=== PATIENT | female | born 1940 | race Caucasian/White ===

== ENCOUNTER 2017-03-02 09:44 | Outpatient (CLI) | payer MEDICARE, BC ==
--- NOTE | 2017-03-02 10:17 | MMO ---
BILATERAL MAMMOGRAMS: HISTORY: Screening mammography. COMPARISON: 01/07/2013 and 02/09/2016. FINDINGS: Scattered fibroglandular densities and benign-appearing calcifications are again demonstrated. Ther e is no dominant mass or suspicious calcifications. The study was evaluated with the assistance of computer-aided detection. IMPRESSION: BI-RADS category 1. Negative. Suggest routine followup. POS: JT
--- NOTE | 2017-03-02 12:46 | BD ---
DEXA BONE MINERAL DENSITOMETRY STUDY: Date: 03/02/17 HISTORY: Postmenopausal. COMPARISON: 08/29/11. FINDINGS: Lumbar Spine: BMD (g/cm2) L1 0.861 T-Score: -1.2 Z-Score: 0.9 L2 0.852 T-Score: -1.6 Z-Score: 0.7 L3 0.888 T-Score: -1.8 Z-Score: 0.7 L4 0.852 T-Score: -1.9 Z-Score: 0.6 L1-L4 0.863 T-Score: -1.7 Z-Score: 0.7 Femoral Neck: 0.641 T-Score: -1.9 Z-Score: 0.2 Total Femur: 0.828 T-Score: -0.9 Z-Score: 0.8 Bone mineral density of the lumbar spine on the study in 2011 from L1-L4 was 0.803, corresponding to a young adult T-score of -2.2. The bone mineral density of the left femoral neck on the prior study was 0.65, corresponding to a young adult T-score of -1.8. IMPRESSION: 1. Mild osteopenia of the lumbar spine and left femoral neck. 2. Since the prior exam, there has been an 8.3% decrease in bone mineral density of the left femora l neck with interval increase in bone mineral density of the lumbar spine by 7.5%. POS: JT
== END 2017-03-02 09:45 | disposition home or self-care (01) ==
LOC: MAMMO 09:44
PROVIDERS: ATTEND Internal Medicine
DX: Z12.31 Encounter for screening mammogram for malignant neoplasm of breast (principal); N95.9 Unspecified menopausal and perimenopausal disorder; M85.88 Other specified disorders of bone density and structure, other site
CPT/HCPCS: 77080; G0202; 77067

== ENCOUNTER 2018-03-20 08:37 | Outpatient (CLI) | payer MEDICARE, BC ==
--- NOTE | 2018-03-20 12:14 | MMO ---
BILATERAL SCREENING MAMMOGRAM: Comparison: Mammograms which date back to March 2013. This study is interpreted with the assistance of computer aided detection. FINDINGS: There is heterogeneously dense breast parenchyma which limits sensitivity of mammography and could ob scure pathology. Stable benign calcifications present without evidence of new dominant masses, suspic ious cluster of microcalcification or architectural distortion. IMPRESSION: BIRADS category 2 - annual screening mammography recommended. POS: JT
== END 2018-03-20 08:38 | disposition home or self-care (01) ==
LOC: SCSMAMMO 08:37
PROVIDERS: ATTEND Internal Medicine
DX: Z12.31 Encounter for screening mammogram for malignant neoplasm of breast (principal)
CPT/HCPCS: 77067

== ENCOUNTER 2025-04-10 08:35 | Outpatient (CLI) | payer MEDICARE, BC | END 2025-04-10 08:36 | disposition home or self-care (01) | LOC: BICMAMMO 08:35 | PROVIDERS: ATTEND Internal Medicine | DX: Z12.31 Encounter for screening mammogram for malignant neoplasm of breast (principal); Z78.0 Asymptomatic menopausal state; M81.0 Age-related osteoporosis without current pathological fracture | CPT/HCPCS: 77063; 77067; 77080 ==